=== PATIENT | female | born 1960 | race African-American/Black ===

== ENCOUNTER 2019-03-23 02:05 | Emergency (ER) | payer MEDICAID, SELFPAY ==
[~2019-03-23] VITALS: Ht 165.1 cm; Wt 113.4 kg
[~2019-03-23 02:05] MED LIST: IBUPROFEN600 MG ORAL
--- NOTE | 2019-03-23 02:17 | NUR ---
ED Nurse Note: Walk-in patient presents with complaints of right lower back pain x 2 days. 7/10 on pain scale.
[2019-03-23 02:18] VITALS: BP 179/92
[2019-03-23] MEDS ORDERED: HYDROcodone/Acetamin 5/325 tab ORAL ONE (02:30)
--- NOTE | 2019-03-23 02:31 | Emergency Room Report ---
History of Present Illness General Chief Complaint: Pain Source: Patient Present Illness HPI This is a 58-year-old female with a history of back pain. She presents with chief complaint of right flank pain. She thinks is her kidney problem. Onset for last 2 days. Worse with movement. Pain is 9 out of 10. No incontinence of bowel or urine. No radiation. Pain is sharp in nature. No nausea no vomiting. No urinary complaint. Allergies: Coded Allergies: No Known Allergies (Unverified , 08/10/14) Patient History Past Medical History: see triage record, old chart reviewed Past Surgical History: none Pertinent Family History: none Social History: Denies: smoking Last Menstrual Period: na Now: No Immunizations: other Reviewed Nursing Documentation: PMH: Agreed; PSxH: Agreed Nursing Documentation-PMH Hx Hypertension: Yes Hx Gastrointestinal Problems: Yes - kidney infection 2012 Review of Systems Eye: Denies: eye pain, blurred vision ENT: Denies: ear pain, nose congestion, throat swelling Respiratory: Denies: cough, shortness of breath Cardiovascular: Denies: chest pain, palpitations Gastrointestinal: Denies: abdominal pain, diarrhea, nausea, vomiting Musculoskeletal: Reports: back pain; Denies: joint pain Skin: Denies: rash Neurological: Denies: headache, numbness Endocrine: Denies: increased thirst, increased urine Hematologic/Lymphatic: Denies: easy bruising All Other Systems: negative except mentioned in HPI Physical Exam Vital Signs Date Time Temp Pulse Resp B/P (MAP) Pulse Ox O2 Delivery O2 Flow Rate FiO2 03/23/19 02:07 98.1 79 18 179/92 (121) 98 Room Air Vitals with high blood pressure Sp02 EP Interpretation: reviewed, normal General Appearance: well appearing, no apparent distress, alert, obese Head: normocephalic, atraumatic Eyes: bilateral eye PERRL, bilateral eye EOMI ENT: hearing grossly normal, normal pharynx Neck: full range of motion, supple, no meningismus Respiratory: chest non-tender, lungs clear, normal breath sounds Cardiovascular #1: regular rate, rhythm, no murmur Gastrointestinal: normal bowel sounds, non tender, no mass, no organomegaly, no bruit, non-distended Musculoskeletal: back normal - Right upper lumbar paraspinous tenderness, gait/ station normal, normal range of motion Psychiatric: mood/affect normal Medical Decision Making Diagnostic Impression: Primary Impression: Back pain Qualified Codes: M54.5 - Low back pain ER Course Patient presents with back pain. No evidence of kidney infection or kidney stone. No evidence of obstruction or acute abdomen. Will discharge home. CT/MRI/US Diagnostic Results CT/MRI/US Diagnostic Results : Imaging Test Ordered: CT abdomen pelvis Impression No acute process per radiologist. Last Vital Signs Date Time Temp Pulse Resp B/P (MAP) Pulse Ox O2 Delivery O2 Flow Rate FiO2 03/23/19 02:18 98.1 81 18 179/92 98 Room Air Status: improved Disposition: HOME, SELF-CARE Condition: Stable Scripts Ibuprofen* (MOTRIN*) 600 Mg Tablet 600 MG ORAL THREE TIMES A DAY, #30 TAB 0 Refills Prov: Stuart Rojas MD 03/23/19 Hydrocodone/Acetaminophen 5-325* (HYDROCODONE/ACETAMINOPHEN 5-325*) 1 Each Tablet 1 TAB ORAL Q6H PRN for For Pain, #15 TAB 0 Refills Prov: Stuart Rojas MD 03/23/19 Referrals: NON PHYSICIAN (PCP) Additional Instructions: Follow-up with your doctor in 7 days. Return if worse. Stuart Rojas MD Mar 23, 2019 02:31
--- NOTE | 2019-03-23 02:37 | NUR ---
ED Nurse Note: Patient went down for CT.
[2019-03-23 03:13] LABS: APPEARANCE,URINE CLEAR; GLUCOSE, URINE (UA) NEGATIVE (NEGATIVE); KETONES,URINE NEGATIVE (NEGATIVE); LEUKOCYTE ESTERASE ,URINE 1+ (NEGATIVE); PH,URINE 5 (4.5-8.0); PROTEIN,URINE NEGATIVE (NEGATIVE)
[2019-03-23 03:34] LABS: BILIRUBIN, URINE NEGATIVE (NEGATIVE); COLOR,URINE AMBER; NITRITE,URINE NEGATIVE (NEGATIVE); UROBILINOGEN,URINE NORMAL MG/DL (0.0-1.0)
[2019-03-23] MEDS ORDERED: IBUPROFEN600 MG ORAL (03:51)
[2019-03-23] MEDS ORDERED: HYDROCODON-ACE1 EA15 ORAL (03:51)
--- NOTE | 2019-03-23 03:55 | NUR ---
ED Nurse Note: Patient cleared for discharge by [facility]. PAtient ID band removed. Patient verbalized understanding of discharge instructions. Patient departed with all belongings accompanied by her daughter.
[2019-03-23 03:56] VITALS: BP 179/92
== END 2019-03-23 03:57 | disposition home or self-care (01) ==
LOC: EMR 02:24
DX: M54.5 Low back pain (principal); I10 Essential (primary) hypertension
CPT/HCPCS: 74176; 81003; Z7502; 99284